=== PATIENT | male | born 1970 | race Two or more races ===

== ENCOUNTER 2022-02-23 12:49 | Emergency (ER) | payer OTHER ==
[~2022-02-23] VITALS: Ht 157.5 cm; Wt 81.0 kg
[2022-02-23] MEDS ORDERED: KETOROLAC TROMETH 60MG/2ML VIAL IM ONE (16:00)
[2022-02-23 16:02] VITALS: BP 129/78
[2022-02-23] MEDS ORDERED: IBUP800T26 PO (17:23)
[2022-02-23] MEDS ORDERED: HYDR-4902 PO (17:23)
== END 2022-02-23 17:36 | disposition home or self-care (01) ==
LOC: ER 12:49
DX: M47.896 Other spondylosis, lumbar region (principal); M53.9 Dorsopathy, unspecified
CPT/HCPCS: 72100; 96372; 99283; J1885